=== PATIENT | female | born 1935 | race Caucasian/White ===

== ENCOUNTER 2020-03-31 12:59 | Inpatient (IN) ==
[2020-03-31] MEDS ORDERED: VANCOMYCIN INJ 1,250 MG in SODIUM CHLORIDE 0.9% 250 ML IV STA (13:36)
[2020-03-31 14:20] LABS: Basophils % 0.3 % (0.0-0.8); Eosinophils # 0.1 10*3/uL (0.0-0.87); Hematocrit 42.9 VOL% (35.7-47.0); Hemoglobin 13.7 GM/DL (12.0-16.0); Immature Granulocytes % 0.5 %; Immature Granulocytes Absolute 0.05 #; Lymphocytes # 1.3 10*3/uL (1.4-4.0); Lymphocytes % 13.6 % (21.3-54.2); Mean Corpuscular HGB Conc 31.9 GM/DL (32-36); Mean Corpuscular Volume 90.5 FL (87-102); Mean Platelet Volume 10.7 FL (9.6-12.0); Monocytes % 9.3 % (1.7-12.7); Neutrophils % 75.3 % (38.7-73.9); Platelet Count 284 T/CUMM (130-400); Red Blood Count 4.74 MC/CUMM (3.8-5.5); Red Cell Distribution Width 14.9 % (9.3-17.3); White Blood Count 9.7 T/CUMM (4-12)
[2020-03-31 14:39] LABS: Apearance,Urine Slightly Hazy (Clear); Bacteria,Urine Few /HPF (Few); Bilirubin,Urine Negative (Negative); Blood, Urine Negative (Negative); Glucose,Urine (UA) Negative (Negative); Ketones,Urine Negative (Negative); Mucus,Urine Occasional /LPF (Occasional); Nitrite,Urine Negative (Negative); Protein,Urine Negative; RBC,Urine 2 /HPF (0-4); Squamous Epithelial Cell,Urine Occasional /HPF (0-10); Urine Color Yellow (Yellow); Urine Specific Gravity 1.006 (1.001-1.035); Urine Urobilinogen < 2.0 EU/DL (0.2-1.0); WBC,Urine 38 /HPF (0-6)
[2020-03-31 14:43] LABS: Alanine Aminotransferase < 9 U/L (13-56); Albumin 3.1 G/DL (3.4-5.0); Alkaline Phosphatase 105 U/L (45-117); Aspartate Amino Transferase 8 U/L (0-37); Blood Urea Nitrogen 8 MG/DL (7-18); Calcium 9.2 MG/DL (8.5-10.1); Estimated Glom Filtration Rate 86 ML/MIN; Glucose 100 MG/DL (74-106); Osmolality,Calculated 272.7 MOS/KG (273-304); Total Protein 7.1 G/DL (6.4-8.3)
[2020-03-31] MEDS ORDERED: VANCOMYCIN 1,000 MG VIAL ONE (15:49)
[2020-03-31] MEDS ORDERED: cefTRIAXone 1,000 MG in SODIUM CHLORIDE 0.9% 100 ML IV STA (15:52)
[2020-03-31] MEDS ORDERED: LACTULOSE 20 GM/30 ML UDCUP PO PRN (16:17)
[2020-03-31] MEDS ORDERED: ALUMINUM/MAGNES/SIMETH MAX STR 30 ML UDCUP PO PRN ×2 (16:17→16:19)
[2020-03-31] MEDS ORDERED: SIMETHICONE CHEW 125 MG TABLET PO PRN (16:17)
[2020-03-31] MEDS ORDERED: DEXTROSE 10% 250 ML BAG IV PRN (16:17)
[2020-03-31] MEDS ORDERED: POTASSIUM CHLORIDE RIDER 10 MEQ in PREMIX 1 EACH IV PRN (16:17)
[2020-03-31] MEDS ORDERED: DOCUSATE SODIUM 100 MG CAPSULE PO PRN (16:17)
[2020-03-31] MEDS ORDERED: GLUCAGON 1 MG VIAL IM PRN (16:17)
[2020-03-31] MEDS ORDERED: ACETAMINOPHEN 325 MG TABLET PO PRN (16:17)
[2020-03-31] MEDS ORDERED: MAGNESIUM SULF RIDER 2 GM in PREMIX 1 EACH IV PRN (16:17)
[2020-03-31] MEDS ORDERED: hydrALAZINE 20 MG/1 ML VIAL IV PRN (16:17)
[2020-03-31] MEDS ORDERED: diphenhydrAMINE CAP 25 MG CAPSULE PO PRN (16:17)
[2020-03-31] MEDS ORDERED: guaiFENesin/DM ER 600-30 MG TABLET PO PRN (16:17)
[2020-03-31] MEDS ORDERED: ONDANSETRON 4 MG/2 ML VIAL IV PRN (16:17)
[2020-03-31] MEDS ORDERED: CALCIUM CARBONATE CHEW 500 MG TABLET PO PRN (16:17)
[2020-03-31] MEDS ORDERED: MAGNESIUM SULF RIDER 4 GM in PREMIX 1 EACH IV PRN (16:17)
[2020-03-31] MEDS ORDERED: BISACODYL 5 MG TABLET PO PRN (16:17)
[2020-03-31] MEDS ORDERED: HALOPERIDOL 5 MG/ML AMP IV PRN (16:47)
[2020-03-31] MEDS ORDERED: CLINDAMYCIN INJ 600 MG in PREMIX 1 EACH IV SCH (17:30)
[2020-03-31] MEDS ORDERED: SULFACETAMIDE 10% RIGHT EYE SCH (21:00)
[2020-03-31] MEDS: SODIUM CHLORIDE 0.9% 1,000 ML IV SCH (21:46)
[2020-03-31] MEDS: metroNIDAZOLE INJ 500 MG in PREMIX 1 EACH IV SCH (21:46)
[2020-03-31] MEDS: QUEtiapine 100 MG TABLET PO SCH (21:46)
[2020-03-31] MEDS: SODIUM CHLORIDE 0.65% NASAL SPRAY 45 ML BOTTLE BOTH NARES SCH (21:47)
[2020-03-31] MEDS: traZODone 50 MG TABLET PO SCH ×2 (21:47)
[2020-03-31] MEDS: ENOXAPARIN 40 MG/0.4 ML SYRINGE SUBCUT SCH (21:47)
[2020-04-01] MEDS: metroNIDAZOLE INJ 500 MG in PREMIX 1 EACH IV SCH ×3 (05:40→21:05)
[2020-04-01 06:09] LABS: Basophils % 0.5 % (0.0-0.8); Eosinophils # 0.1 10*3/uL (0.0-0.87); Eosinophils % 1.6 % (0.00-10.9); Hemoglobin 11.2 GM/DL (12.0-16.0); Immature Granulocytes % 0.5 %; Immature Granulocytes Absolute 0.03 #; Lymphocytes # 1.3 10*3/uL (1.4-4.0); Lymphocytes % 21.1 % (21.3-54.2); Mean Corpuscular Volume 88.8 FL (87-102); Mean Platelet Volume 11.1 FL (9.6-12.0); Neutrophils % 64.3 % (38.7-73.9); Platelet Count 234 T/CUMM (130-400); Red Blood Count 3.94 MC/CUMM (3.8-5.5); Red Cell Distribution Width 14.8 % (9.3-17.3); White Blood Count 6.4 T/CUMM (4-12)
[2020-04-01 06:36] LABS: Alanine Aminotransferase < 9 U/L (13-56); Albumin 2.5 G/DL (3.4-5.0); Alkaline Phosphatase 84 U/L (45-117); Aspartate Amino Transferase 8 U/L (0-37); Blood Urea Nitrogen 9 MG/DL (7-18); Calcium 8.4 MG/DL (8.5-10.1); Estimated Glom Filtration Rate 84 ML/MIN; Glucose 104 MG/DL (74-106); HDL Cholesterol 36 MG/DL (40-60); Osmolality,Calculated 275.5 MOS/KG (273-304); Risk Ratio 3.64; Total Protein 5.8 G/DL (6.4-8.3); Triglycerides 85 MG/DL (2-150)
[2020-04-01] MEDS ORDERED: LORazepam 2 MG/1 ML VIAL IV ONE (08:48)
[2020-04-01] MEDS: LEVOTHYROXINE 50 MCG TABLET PO SCH (10:05)
[2020-04-01] MEDS: amLODIPine 5 MG TABLET PO SCH (10:05)
[2020-04-01] MEDS: DOCUSATE SODIUM 100 MG CAPSULE PO SCH (10:06)
[2020-04-01] MEDS: traZODone 50 MG TABLET PO SCH ×3 (10:06→21:04)
[2020-04-01] MEDS: PANTOPRAZOLE 40 MG TABLET PO SCH (10:06)
[2020-04-01] MEDS: QUEtiapine 25 MG TABLET PO SCH (10:06)
[2020-04-01] MEDS: RIVASTIGMINE 4.6 MG/24 HR PATCH TRANSDERM SCH (10:07)
[2020-04-01] MEDS: SODIUM CHLORIDE 0.65% NASAL SPRAY 45 ML BOTTLE BOTH NARES SCH ×2 (10:08→21:05)
[2020-04-01] MEDS: ACYCLOVIR INJ 500 MG in SODIUM CHLORIDE 0.9% 100 ML IV SCH ×2 (13:24→19:15)
[2020-04-01] MEDS ORDERED: LEVOFLOXACIN INJ 500 MG in PREMIX 1 EACH IV SCH (16:30)
[2020-04-01] MEDS: VANCOMYCIN INJ 1,250 MG in SODIUM CHLORIDE 0.9% 250 ML IV SCH (17:02)
[2020-04-01] MEDS: POTASSIUM CHLORIDE 20 MEQ TABLET PO PRN ×3 (18:32→23:45)
[2020-04-01] MEDS: QUEtiapine 100 MG TABLET PO SCH (21:04)
[2020-04-01] MEDS: ENOXAPARIN 40 MG/0.4 ML SYRINGE SUBCUT SCH (21:04)
[2020-04-01] MEDS: cefTRIAXone 2,000 MG in SYRINGE 1 EACH IV SCH (21:05)
[2020-04-02] MEDS: ACYCLOVIR INJ 500 MG in SODIUM CHLORIDE 0.9% 100 ML IV SCH ×2 (01:50→09:36)
[2020-04-02] MEDS: POTASSIUM CHLORIDE 20 MEQ TABLET PO PRN (01:50)
[2020-04-02] MEDS: metroNIDAZOLE INJ 500 MG in PREMIX 1 EACH IV SCH ×2 (04:26→14:45)
[2020-04-02 08:34] LABS: Basophils % 0.5 % (0.0-0.8); Eosinophils # 0.2 10*3/uL (0.0-0.87); Eosinophils % 3.2 % (0.00-10.9); Hematocrit 35.4 VOL% (35.7-47.0); Hemoglobin 11.2 GM/DL (12.0-16.0); Immature Granulocytes % 0.4 %; Immature Granulocytes Absolute 0.02 #; Lymphocytes # 1.2 10*3/uL (1.4-4.0); Lymphocytes % 21.3 % (21.3-54.2); Mean Corpuscular HGB Conc 31.6 GM/DL (32-36); Mean Platelet Volume 10.7 FL (9.6-12.0); Neutrophils % 63.6 % (38.7-73.9); Platelet Count 245 T/CUMM (130-400); Red Blood Count 3.89 MC/CUMM (3.8-5.5); White Blood Count 5.6 T/CUMM (4-12)
[2020-04-02] MEDS: DOCUSATE SODIUM 100 MG CAPSULE PO SCH (08:40)
[2020-04-02] MEDS: PANTOPRAZOLE 40 MG TABLET PO SCH (08:40)
[2020-04-02] MEDS: LEVOTHYROXINE 50 MCG TABLET PO SCH (08:41)
[2020-04-02] MEDS: RIVASTIGMINE 4.6 MG/24 HR PATCH TRANSDERM SCH (08:41)
[2020-04-02] MEDS: QUEtiapine 25 MG TABLET PO SCH (08:41)
[2020-04-02] MEDS: amLODIPine 5 MG TABLET PO SCH (08:41)
[2020-04-02] MEDS: SODIUM CHLORIDE 0.65% NASAL SPRAY 45 ML BOTTLE BOTH NARES SCH ×2 (08:41→20:35)
[2020-04-02] MEDS: traZODone 50 MG TABLET PO SCH ×3 (08:44→20:35)
[2020-04-02 08:55] LABS: Alanine Aminotransferase < 9 U/L (13-56); Albumin 2.2 G/DL (3.4-5.0); Alkaline Phosphatase 78 U/L (45-117); Aspartate Amino Transferase 8 U/L (0-37); Blood Urea Nitrogen 11 MG/DL (7-18); Calcium 8.4 MG/DL (8.5-10.1); Estimated Glom Filtration Rate 84 ML/MIN; Glucose 87 MG/DL (74-106); Osmolality,Calculated 276.4 MOS/KG (273-304); Total Protein 5.6 G/DL (6.4-8.3)
[2020-04-02] MEDS: SODIUM CHLORIDE 0.9% 1,000 ML IV SCH ×2 (09:35)
[2020-04-02] MEDS: CIPROFLOXACIN 0.3% OPH SOLN 2.5 ML BOTTLE RIGHT EYE SCH ×4 (10:36→21:13)
[2020-04-02] MEDS: VANCOMYCIN INJ 1,250 MG in SODIUM CHLORIDE 0.9% 250 ML IV SCH (16:34)
[2020-04-02] MEDS: QUEtiapine 100 MG TABLET PO SCH (20:35)
[2020-04-02] MEDS: ENOXAPARIN 40 MG/0.4 ML SYRINGE SUBCUT SCH (20:35)
[2020-04-02] MEDS: cefTRIAXone 2,000 MG in SYRINGE 1 EACH IV SCH (20:36)
[2020-04-03] MEDS: CIPROFLOXACIN 0.3% OPH SOLN 2.5 ML BOTTLE RIGHT EYE SCH ×6 (02:01→22:18)
[2020-04-03 06:09] LABS: Basophils % 0.5 % (0.0-0.8); Eosinophils # 0.3 10*3/uL (0.0-0.87); Eosinophils % 4.6 % (0.00-10.9); Hematocrit 36.7 VOL% (35.7-47.0); Hemoglobin 11.7 GM/DL (12.0-16.0); Immature Granulocytes % 0.4 %; Immature Granulocytes Absolute 0.02 #; Lymphocytes # 1.4 10*3/uL (1.4-4.0); Lymphocytes % 24.8 % (21.3-54.2); Mean Corpuscular HGB Conc 31.9 GM/DL (32-36); Mean Corpuscular Volume 90.8 FL (87-102); Mean Platelet Volume 10.8 FL (9.6-12.0); Neutrophils % 56.7 % (38.7-73.9); Platelet Count 267 T/CUMM (130-400); Red Blood Count 4.04 MC/CUMM (3.8-5.5); Red Cell Distribution Width 14.8 % (9.3-17.3); White Blood Count 5.7 T/CUMM (4-12)
[2020-04-03 06:33] LABS: Calcium 8.3 MG/DL (8.5-10.1); Osmolality,Calculated 276.4 MOS/KG (273-304)
[2020-04-03 06:39] LABS: Alanine Aminotransferase < 6 U/L (13-56); Albumin 2.3 G/DL (3.4-5.0); Alkaline Phosphatase 78 U/L (45-117); Aspartate Amino Transferase 11 U/L (0-37); Bilirubin,Total < 0.39 MG/DL (0.2-1.0); Blood Urea Nitrogen 10 MG/DL (7-18); Calcium 8.7 MG/DL (8.5-10.1); Estimated Glom Filtration Rate 84 ML/MIN; Glucose 85 MG/DL (74-106); Osmolality,Calculated 278.3 MOS/KG (273-304); Total Protein 5.6 G/DL (6.4-8.3)
[2020-04-03] MEDS: traZODone 50 MG TABLET PO SCH ×3 (10:04→22:25)
[2020-04-03] MEDS: QUEtiapine 25 MG TABLET PO SCH (10:04)
[2020-04-03] MEDS: LEVOTHYROXINE 50 MCG TABLET PO SCH (10:04)
[2020-04-03] MEDS: DOCUSATE SODIUM 100 MG CAPSULE PO SCH (10:04)
[2020-04-03] MEDS: PANTOPRAZOLE 40 MG TABLET PO SCH (10:04)
[2020-04-03] MEDS: amLODIPine 5 MG TABLET PO SCH (10:05)
[2020-04-03] MEDS: SODIUM CHLORIDE 0.65% NASAL SPRAY 45 ML BOTTLE BOTH NARES SCH ×2 (10:05→22:17)
[2020-04-03] MEDS: RIVASTIGMINE 4.6 MG/24 HR PATCH TRANSDERM SCH (10:05)
[2020-04-03] MEDS: SODIUM CHLORIDE 0.9% 1,000 ML IV SCH (10:06)
[2020-04-03] MEDS: VANCOMYCIN INJ 1,250 MG in SODIUM CHLORIDE 0.9% 250 ML IV SCH (16:19)
[2020-04-03] MEDS: ENOXAPARIN 40 MG/0.4 ML SYRINGE SUBCUT SCH (22:16)
[2020-04-03] MEDS: QUEtiapine 100 MG TABLET PO SCH (22:17)
[2020-04-03] MEDS: cefTRIAXone 2,000 MG in SYRINGE 1 EACH IV SCH (22:54)
[2020-04-04] MEDS: SODIUM CHLORIDE 0.9% 1,000 ML IV SCH (00:30)
[2020-04-04] MEDS: CIPROFLOXACIN 0.3% OPH SOLN 2.5 ML BOTTLE RIGHT EYE SCH ×4 (03:04→13:50)
[2020-04-04 06:32] LABS: Basophils % 0.4 % (0.0-0.8); Eosinophils # 0.2 10*3/uL (0.0-0.87); Eosinophils % 4.4 % (0.00-10.9); Hematocrit 36.8 VOL% (35.7-47.0); Hemoglobin 11.9 GM/DL (12.0-16.0); Immature Granulocytes % 0.4 %; Immature Granulocytes Absolute 0.02 #; Lymphocytes # 1.4 10*3/uL (1.4-4.0); Lymphocytes % 28.9 % (21.3-54.2); Mean Corpuscular HGB Conc 32.3 GM/DL (32-36); Mean Corpuscular Volume 88.2 FL (87-102); Mean Platelet Volume 11.1 FL (9.6-12.0); Monocytes % 14.3 % (1.7-12.7); Neutrophils % 51.6 % (38.7-73.9); Platelet Count 272 T/CUMM (130-400); Red Blood Count 4.17 MC/CUMM (3.8-5.5); Red Cell Distribution Width 14.9 % (9.3-17.3); White Blood Count 4.8 T/CUMM (4-12)
[2020-04-04 06:58] LABS: Calcium 8.4 MG/DL (8.5-10.1); Osmolality,Calculated 275.4 MOS/KG (273-304)
[2020-04-04 07:00] LABS: Albumin 2.3 G/DL (3.4-5.0); Bilirubin,Total 0.4 MG/DL (0.2-1.0); Calcium 8.4 MG/DL (8.5-10.1); Osmolality,Calculated 273.5 MOS/KG (273-304); Total Protein 5.8 G/DL (6.4-8.3)
[2020-04-04] MEDS: QUEtiapine 25 MG TABLET PO SCH (09:32)
[2020-04-04] MEDS: traZODone 50 MG TABLET PO SCH (09:33)
[2020-04-04] MEDS: amLODIPine 5 MG TABLET PO SCH (09:34)
[2020-04-04] MEDS: PANTOPRAZOLE 40 MG TABLET PO SCH (09:34)
[2020-04-04] MEDS: LEVOTHYROXINE 50 MCG TABLET PO SCH (09:34)
[2020-04-04] MEDS: DOCUSATE SODIUM 100 MG CAPSULE PO SCH (09:34)
[2020-04-04] MEDS: RIVASTIGMINE 4.6 MG/24 HR PATCH TRANSDERM SCH (09:35)
[2020-04-04] MEDS: SODIUM CHLORIDE 0.65% NASAL SPRAY 45 ML BOTTLE BOTH NARES SCH (09:37)
[2020-04-04 12:22] VITALS: BP 131/69
== END 2020-04-04 14:20 | DRG 602 ==
LOC: EDBD → SUATTDRO → EDUNIT# → N.ED 12:59 → N.EDINP 16:17 → SUATTDRO 16:17 → N.TELEN 18:27
PROVIDERS: ADMIT Internal Medicine Nephrology; ATTEND Family Medicine